=== PATIENT | female | born 1985 | race Caucasian/White ===

== ENCOUNTER 2024-11-14 00:22 | Day surgery (SDC) | payer BC, SELFPAY ==
[2024-11-04 14:51] VITALS: BMI 20.9
--- NOTE | 2024-11-04 15:00 | PC.NURSE ---
Report to the Outpatient Waiting Room, entrance under the green pavilion located off [facility], at time _0615_ on date _[id number]_. Planned Procedure Time: _0815_.? Time changes happen often and if your time is changed the preop area will call you the afternoon before. - You and your visitor will be asked to self-screen and do not enter if you have any COVID symptoms. Please call surgeon if you need to reschedule. - A mask is optional within the hospital at this time. Patients may have clear liquids (water, carbonated beverages, clear teas, apple juice) until 3 hours prior to surgery with a maximum of 20 ounces. - No food from midnight until time of surgery and no smoking, or chewing tobacco (or any form of nicotine). No chewing gum, candy or mints. Take only the following medications with a SIP of water on the morning of surgery: __BC pill, Lamotrigine and Escitalopram.____ DO NOT STOP ANY OF YOUR OTHER PRESCRIPTION MEDICATIONS PRIOR TO SURGERY EXCEPT THE FOLLOWING Hold all vitamins and supplements for 3 days per anesthesiologist. Medications to discontinue per physician Date to take last dose Please no make-up, nail italian, hairspray, perfume, deodorant, or body powder the day of surgery.? No jewelry (including any body piercings) or valuables the day of surgery, leave them at home.? Please take a shower or bath the night before, or the morning of, surgery with an antibacterial soap.? Wear comfortable, loose fitting clothing.? - Jewelry must be removed prior to entering the operating room.? Rings and piercings that are not removed may be cut off. - The hospital will not accept responsibility for valuables.? - Please leave all valuables, including medications, at home the day of surgery. If you are going home after surgery, a licensed batch mixing truck driver must drive you home.? - NO public transportation without another adult if you receive anesthesia. - We recommend that an adult stay with you for 24 hours following discharge. - We also recommend that you do not drive, make important decision, drink alcoholic beverages, or take any drugs that were not prescribed by your health care provider for at least 24 hours after your discharge time. Follow any additional instructions given to you from your surgeon. Telephone instructions given to __Citlaly__and asked if any additional questions and then verbalized understanding. Patient advised to call surgeon office or pre surgery nurse liaison [phone] if any additional questions.
--- NOTE | 2024-11-13 10:27 | WPDANESEPPF ---
Anes - Initial Pre Proc Eval Procedure: Operation Date: 11/14/24 08:15 Proposed Procedures p Laparoscopic Bilateral Salpingectomy - Tara Ruiz MD Date/Time: 11/13/24 10:27 Surgeon: Tara Ruiz MD Pre Op Diagnosis: Request sterilization Patient Data Age: 39 Gender: F Height: 1.7 m Weight: 60.5 kg Allergies Allergy/AdvReac Type Severity Reaction Status Date / Time No Known Allergies Allergy Verified 11/14/24 07:12 Home Medications ?Medication ?Instructions ?Recorded ?Confirmed ?Type atomoxetine 60 mg capsule 60 mg PO DAILY 11/04/24 11/04/24 History cholestyramine (with sugar) 4 gram 1 ea PO DAILY 11/04/24 11/04/24 History oral powder drospirenone 3 mg-ethinyl 1 tablet PO DAILY 11/04/24 11/14/24 History estradiol 0.02 mg tablet (Vestura ()) escitalopram oxalate 20 mg tablet 20 mg PO DAILY 11/04/24 11/14/24 History hydroxyzine HCl 10 mg tablet 10 mg PO Q8H PRN itching 11/04/24 11/04/24 History lamotrigine 25 mg tablet 25 mg PO DAILY 11/04/24 11/14/24 History pregabalin 50 mg capsule 50 mg PO QPM 11/04/24 11/14/24 History quetiapine 150 mg tablet 150 mg PO HS 11/04/24 11/14/24 History sumatriptan succinate 25 mg tablet 25 mg PO Q2H PRN migraine headache 11/04/24 11/04/24 History topiramate 25 mg tablet 25 mg PO HS 11/04/24 11/14/24 History Patient hx anesthesia problems: none Family hx anesthesia problems: none Results Review: All pre-operative results and documents have been reviewed as part of the pre-operative evaluation. [facility] Past Medical History Medical History (Updated 11/14/24 @ 07:23 by Tara Ruiz MD) History of Elective - Medical 2020 History of eating disorder Anorexia and bulimia PTSD (post-traumatic stress disorder) ADHD Depression Social History Social History Years smoked: 3 Tobacco type: cigarettes Smoking end date: 11/04/14 Alcohol intake: current Drinks per week: 4 Substance use type: marijuana Other substance usage details: Daily Living arrangements: with family Spiritual care concerns: No Anes - Eval Final PreProcedure Day of Procedure 11/13/24 10:27 Patient weight: normal Heart: regular rate and rhythm Lungs: clear to auscultation and normal air movement Airway: Mallampati scale class II Neurological: alert and oriented Last oral intake: >/= 8 hours ASA classification: III Emergent: no Anesthetic plan: proceed Anesthesia type and monitoring: general GIVS and standard monitoring Results Review: All pre-operative results and documents have been reviewed as part of the pre-operative evaluation. Informed Consent: The patient's anesthetic plan and its attendant risks and benefits were discussed with the patient/family/POA. Questions were solicited and answers provided to the satisfaction of the patient/family/POA.
--- OUTSIDE RECORDS SUMMARY | 2024-11-14 00:26 | XMS_ITS | Clinical Summary ---
Author Organization [facility] Building [address] [place] [phone] Care Team Providers Care Business Insurance Agent Name Role Phone Tara Cowan Primary Care Provider + Allergies Active Allergy Reactions Criticality Noted Date Comments Other Other (See comments) Low 06/09/2011 Medications escitalopram (LEXAPRO) 20 mg tablet 023 Active hydrOXYzine (ATARAX) 10 mg tablet Take 1 tablet (10 mg total) by mouth every 8 (eight) hours as needed for itching Active lamoTRIgine (LaMICtal) 25 mg disintegrating tablet Take 1 tablet (25 mg total) by mouth daily Active Vestura, 28, 3-0.02 mg per tablet 025 Active norelgestromin-et hin.estradioL (Xulane) 150-35 mcg/24 hr Transdermal 024 Active QUEtiapine 150 mg tablet Take 150 mg by mouth nightly 90 tablet 1 025 Active Lyrica 50 mg capsuleIndication s:Restless legs syndrome (RLS) Take 1 capsule (50 mg total) by mouth daily 90 capsule 1 025 Active SUMAtriptan (IMITREX) 25 mg tablet Take 1 tablet (25 mg total) by mouth once as needed for migraine May repeat dose once in 2 hours if no relief. Do not exceed 2 doses in 24 hours. 27 tablet 3 025 Active topiramate (TOPAMAX) 25 mg tablet Take 1 tablet (25 mg total) by mouth nightly 90 tablet 3 025 Active cholestyramine (QUESTRAN) 4 gram powder Take 1 packet (4 g total) by mouth daily 328 g 1 Active QUEtiapine 150 mg tablet TAKE 1 TABLET BY MOUTH EVERY DAY AT BEDTIME FOR DEPRESSION 2024 Discontinued(R eorder) SUMAtriptan (IMITREX) 25 mg tablet TAKE 1 TABLET BY MOUTH DAILY NEEDED FOR MIGRAINES. MAY REPEAT DOSE FOR 1 AFTER 2 HOURS NEEDED 024 2024 Discontinued(R eorder) topiramate (TOPAMAX) 25 mg tablet Take 1 tablet (25 mg total) by mouth nightly 024 2024 Discontinued(R eorder) cholestyramine (QUESTRAN) 4 gram packet daily 2024 Discontinued Lyrica 50 mg capsule daily 2024 Discontinued(R eorder) Active Problems Problem Noted Date Diagnosed Date Night terror 10/17/2024 Assessment & Plan (11/08/2024 2:09 PM CDT): The patient presents with night terrors and nightmares where she dreams of choking and smothering. I have recommended proceeding with a nocturnal polysomnogram with a split night protocol if necessary and no MSLT. Her significant other does note apneic episodes and gasping periods at night. She will follow up here in 4 months. Assessment & Plan (10/17/2024 11:18 PM CDT): Night Terrors Recurrent episodes, some severe, managed with quetiapine (Seroquel). -Continue quetiapine as prescribed. -Refer to sleep medicine for potential sleep study to evaluate for sleep apnea. Orders: Ambulatory referral to Sleep Medicine; Future Restless legs syndrome (RLS) 10/17/2024 Assessment & Plan (11/08/2024 2:10 PM CDT): She continues on Lyrica 50 mg p.o. at 5:00 p.m. and this is controlling the RLS symptoms at night Assessment & Plan (10/17/2024 11:18 PM CDT): Chronic, well controlled Managed with Lyrica. -Continue Lyrica as prescribed. Orders: Ambulatory referral to Sleep Medicine; Future Lyrica 50 mg capsule; Take 1 capsule (50 mg total) by mouth daily Irritable bowel syndrome with diarrhea Assessment & Plan (10/17/2024 11:18 PM CDT): Irritable Bowel Syndrome Managed with cholestyramine powder. -Continue cholestyramine powder as prescribed. Attention deficit disorder (ADD) in adult 2024 Assessment & Plan (10/17/2024 11:18 PM CDT): Chronic, well controlled Continue Medical management per psychiatrist Migraine without aura and wi thout status migrainosus, not intractable 10/17/2024 Assessment & Plan (10/17/2024 11:18 PM CDT): Chronic, well controlled Occur infrequently, primarily around menstrual cycles. Continue topiramate daily and sumatriptan as needed. Mixed anxiety depressive disorder 12/26/2013 Assessment & Plan (10/17/2024 11:18 PM CDT): Chronic Well controlled Follows with psychiatrist Continue current regimen of escitalopram and lamotrigine. Anorexia nervosa in remission 06/09/2011 Assessment & Plan (10/17/2024 11:18 PM CDT): Doing well Controlling anxiety/depression Encounters Date Type Department Care Team Description 11/08/2024 1:30 PM CDT Office Visit [facility] [address] [phone] Yevgeniy Garcia MD Night terror; Restless legs syndrome (RLS); Snoring 10/28/2024 Telephone [facility] Pulmonary January [address] [facility] [address] [place] [address] Yevgeniy Garcia MD Appointment Reminder Call (Call made to the patient, Sleep study) 10/17/2024 1:30 PM CDT Office Visit [facility] [address] [phone] Tara Cowan PA Mixed anxiety depressive disorder (Primary Dx); Night terror; Restless legs syndrome (RLS); Irritable bowel syndrome with diarrhea; Attention deficit disorder (ADD) in adult; Snoring; Migraine without aura and without status migrainosus, not intractable; Anorexia nervosa in remission (HCC) from Last 3 Months Immunizations Immunization Administration Dates Next Due Hep A, Adult 08/15/2017,01/12/2017,08/10/2016 Influenza, Quadrivalent, Arleen l Culture-based MDCK, Preservative Free, Antibiotic Free, Intramuscular 08/17/2021 Influenza, Trivalent, Cell Culture-based MDCK, Preservative Free, Antibiotic Free, Intramuscular 08/15/2017 Influenza, Unspecified 10/17/2024(Deferr ed: Patient Refused),05/10/2024(Deferred: Patient decision),05/10/2023(Deferred: Patient Refused) Tdap 02/15/2024 Medical History Medical History Date Comments Depression 2002 Bulimia nervosa 2010 Anxiety 7 years old Migraines 2020 Chicken pox Family History Medical History Relation Name Comments Diabetes Father Cody Hearing loss Father Cody Alcohol abuse Maternal Grandfather Demarco Stroke Maternal Grandmother Kathya Depression Mother Virginia Hyperlipidemia Mother Virginia Mental illness Mother Virginia Miscarriages / Stillbirths Mother Virginia Obesity Mother Virginia Colon cancer Other 2 Great uncle mom 's side Alcohol abuse Paternal Grandfather Breast cancer Neg Hx Relation Name Status Comments Father Cody Alive Maternal Grandfather Demarco Maternal Grandmother Kathya Alive Mother Virginia Alive Other 1 Alive Other 2 Paternal Grandfather Paternal Grandmother Social History Tobacco Use Types Packs/Day Years Used Date Smoking Tobacco: Former Cigarettes 0.3 5.2 0 08/10/2009 - 08/10/2014 Smokeless Tobacco: Never Tobacco Cessation:Counseling Given: Not Answered AUDIT-C Answer Date Recorded Q1: How often do you have a drink containing alc ohol? 2-4 times a month 10/17/2024 Q2: How many drinks containi ng alcohol do you have on a typical day when you are drinking? 3 or 4 10/17/2024 Q3: How often do you have si x or more drinks on one occasion? 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 Gender Identity Not on file Sexual Orientation Not on file Obstetrics History Last Filed Vital Signs Vital Sign Reading Time Taken Comments Blood Pressure 114/64 11/08/2024 1:33 PM CDT Pulse 94 11/08/2024 1:33 PM CDT Temperature 36.3 C (97.4 F) 11/08/2024 1:33 PM CDT Respiratory Rate 18 11/08/2024 1:33 PM CDT Oxygen Saturation 99% 11/08/2024 1:33 PM CDT Inhaled Oxygen Concentration - - Weight 62.6 kg (138 lb) 11/08/2024 1:33 PM CDT Height 170.2 cm (5' 7 ) 11/08/2024 1:33 PM CDT Body Mass Index 21.61 11/08/2024 1:33 PM CDT Plan of Treatment Health Maintenance Due Date Last Done Comments Breast Cancer Screening-Mammogram 1984 Hepatitis C Screening 1984 Hepatitis B Screening 2002 Regular Well Visit/Exam 18-64 2002 Covid-19 Vaccine (2023- 5 season) 2024 08/17/2021, 10/25/2020, 10/04/2020 Influenza Vaccine (Season Ended) 2025 08/17/2021, 08/15/2017 Depression Screening 10/17/2025 10/17/2024, 10/17/2024 Cervical Cancer Screening 02/16/2029 02/17/2024 DTaP/Tdap/Td Vaccine (2 - Td or Tdap) 02/14/2034 02/15/2024 HPV Vaccines Aged Out No longer eligi ble based on patient's age to complete this topic Pneumococcal vaccine <65 Aged Out No longer eligible based on patient's age to complete this topic Procedures Procedure Name Priority Date/Time Associated Diagnosis Comments LIPID PANEL Routine 11/10/2024 2:38 PM CDT PAP SMEAR WITH HPV Routine 02/17/2024 2:38 PM CDT from Last 3 Months or Most Recently Relevant to Health Maintenance Results * LIPID PANEL (11/10/2024 2:38 PM CDT) SCRIBED Cholesterol, Total 229 SCRIBED Triglycerides 82 SCRIBED HDL 87 SCRIBED LDL 124 SCRIBED LDL/HDL Ratio 2.6 Historical Provider HEALTH MAINTENANCE Edited Result - Final * PAP SMEAR WITH HPV (02/17/2024 2:38 PM CDT) Scribed Pap Smear w/HPV Normal Historical Provider MD HEALTH MAINTENANCE Final Result from Last 3 Months or Most Recently Relevant to Health Maintenance Insurance DermApproved OOS BLUE ACCESS OOS BLUE ACCESS OOS [address] [place] [address] Care Teams Business Insurance Agent Relationship Specialty Start Date End Date Tara Cowan PA [address] [facility] [address] [place], [place] [id number] PCP - General Family Medicine 10/11/24
--- OUTSIDE RECORDS SUMMARY | 2024-11-14 00:26 | XMS_ITS | Referral Summary ---
Author Organization [facility] [address] [place] [phone] Care Team Providers Care Nuclear Power Reactor Operator Name Role Phone Tara Cowan Primary Care Provider + Encounters Date Type Department Care Team Description 11/08/2024 1:30 PM CDT Office Visit [facility] [address] [phone] Yevgeniy Garcia MD Night terror; Restless legs syndrome (RLS); Snoring 10/28/2024 Telephone [facility] [address] [phone] Yevgeniy Garcia MD Appointment Reminder Call (Call made to the patient, Sleep study) 10/17/2024 1:30 PM CDT Office Visit [facility] [address] [phone] Tara Cowan PA Mixed anxiety depressive disorder (Primary Dx); Night terror; Restless legs syndrome (RLS); Irritable bowel syndrome with diarrhea; Attention deficit disorder (ADD) in adult; Snoring; Migraine without aura and without status migrainosus, not intractable; Anorexia nervosa in remission (HCC) from Last 3 Months Allergies Active Allergy Reactions Criticality Noted Date [...] total) by mouth daily 328 g 1 025 Active QUEtiapine 150 mg tablet TAKE 1 TABLET BY MOUTH EVERY DAY AT BEDTIME FOR DEPRESSION 024 2024 Discontinued(R eorder) SUMAtriptan (IMITREX) 25 mg [...] 11:18 PM CDT): Doing well Controlling anxiety/depression Immunizations Immunization Administration Dates Next Due Hep A, Adult 08/15/2017,01/12/2017,08/10/2016 Influenza, Quadrivalent, Arleen l Culture-based MDCK, Preservative Free, Antibiotic Free, Intramuscular 08/17/2021 Influenza, Trivalent, Cell Culture-based MDCK, Preservative Free, Antibiotic Free, Intramuscular 08/15/2017 Influenza, Unspecified 10/17/2024(Deferr ed: Patient Refused),05/10/2024(Deferred: Patient decision),05/10/2023(Deferred: Patient Refused) Tdap 02/15/2024 Social History Tobacco Use Types Packs/Day Years [...] on file 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 Gender Identity Not on file Sexual Orientation Not on file Last Filed Vital Signs Vital Sign Reading [...] 11/08/2024 1:33 PM CDT Plan of Treatment Not on file Procedures Procedure Name Priority Date/Time Associated Diagnosis [...] Scribed Pap Smear w/HPV Normal Historical Provider HEALTH MAINTENANCE Final Result from Last 3 Months or Most Recently Relevant to Health Maintenance Insurance BLUE ACCESS OOS BLUE ACCESS OOS BLUE ACCESS OOS [address] [place] [address] Care Teams Nuclear Power Reactor Operator Relationship Specialty Start Date End Date Tara Cowan PA [address] [facility] [address] [place] [address] PCP - General Family Medicine 10/11/24
--- OUTSIDE RECORDS SUMMARY | 2024-11-14 00:26 | XMS_ITS | Clinical Summary ---
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 Gender Identity Not on file Sexual Orientation Not on file Plan of Treatment Health Maintenance Due Date Last Done Comments Hepatitis C Virus (HCV) Screening 1984 TdaP Immunization 1984 Hepatitis B Immunization (1 of 3 - 19+ 3-dose series) 2003 Pap Smear 2005 Cervical Cancer Screening (CCS) 2014 HPV/Cotest 2014 Influenza Immunization (#1) 2024 SARS-COV-2 Immunization ( season) 2024 10/25/2020, 10/04/2020 Discussion re Starting/Frequency of Mammograms 2024 Respiratory Syncytial Virus (RSV) Immunization (Adult) (1 - 1-dose 75+ series) 2059 Meningococcal Immunization (ACWY) Aged Out No longer eligible b ased on patient's age to complete this topic Pneumococcal Immunization Combined Aged Out No longer eligible b ased on patient's age to complete this topic Rotavirus Immunization Aged Out No lo nger eligible based on patient's age to complete this topic
[2024-11-14 06:25] VITALS: BP 116/70; PULSE 58; RESP 16; TEMP 36.6; O2SAT 100; BMI 21.2
[2024-11-14] MEDS: LACTATED RINGERS 1,000 ML 30 ML IV CONT (07:00)
[2024-11-14 07:16] LABS: BEDSIDEPREGUCG Negative (Negative)
--- NOTE | 2024-11-14 07:19 | P.HP_ITS ---
History of Present Illness History of Present Illness Consent: Risks, benefits, and alternatives have been discussed and questions answered. Patient agrees to proceed with procedure. Chief complaint: Request sterilization Narrative: Citlaly Lau is a 39 year old female who does not wish to have any children. Options were discussed patient and she has elected to proceed with a permanent sterilization via laparoscopic bilateral salpingectomy. Risks infection, bleeding, injury to internal organs, tubal failure with increased risk of ectopic , and general anesthesia were reviewed. Patient voices understanding and agrees to proceed. Review of Systems Review of Systems: not repeated day of surgery; patient states no changes in status [facility] Past Medical History Medical History (Updated 11/14/24 @ 07:23 by Tara Ruiz MD) History of Elective - Medical 2020 History of eating disorder Anorexia and bulimia PTSD (post-traumatic stress disorder) ADHD Depression Social History Social History Years smoked: 3 Tobacco type: cigarettes Smoking end date: 11/04/14 Alcohol intake: current Drinks per week: 4 Substance use type: marijuana Other substance usage details: Daily Living arrangements: with family Spiritual care concerns: No Meds Home Medications and Allergies Home Medications ?Medication ?Instructions ?Recorded ?Confirmed ?Type atomoxetine 60 mg capsule 60 mg PO DAILY 11/04/24 11/04/24 History cholestyramine (with sugar) 4 gram 1 ea PO DAILY 11/04/24 11/04/24 History oral powder drospirenone 3 mg-ethinyl 1 tablet PO DAILY 11/04/24 11/14/24 History estradiol 0.02 mg tablet (Vestura (28)) escitalopram oxalate 20 mg tablet 20 mg PO DAILY 11/04/24 11/14/24 History hydroxyzine HCl 10 mg tablet 10 mg PO Q8H PRN itching 11/04/24 11/04/24 History lamotrigine 25 mg tablet 25 mg PO DAILY 11/04/24 11/14/24 History pregabalin 50 mg capsule 50 mg PO QPM 11/04/24 11/14/24 History quetiapine 150 mg tablet 150 mg PO HS 11/04/24 11/14/24 History sumatriptan succinate 25 mg tablet 25 mg PO Q2H PRN migraine headache 11/04/24 11/04/24 History topiramate 25 mg tablet 25 mg PO HS 11/04/24 11/14/24 History Allergies Allergy/AdvReac Type Severity Reaction Status Date / Time No Known Allergies Allergy Verified 11/14/24 07:12 Exam Const: General: healthy appearing and alert Orientation/consciousness: patient oriented x3 Resp: Effort & Inspection: normal respiratory effort GI: GI Palp: Yes Soft to palpation, No Tenderness to palpation present (GI) and No Palpable mass present : External Female Exam: normal external appearance Speculum Exam - Vagina: normal appearance of the vagina and normal vaginal discharge Speculum Exam - Cervix: normal appearance of the cervix Bimanual exam- vagina & uterus: uterine size normal and consistency normal Bimanual Exam- Adnexa, other: normal adnexae and No adnexal tenderness Neuro: General: patient oriented x3 Assessment and Plan Assessment and plan (1) Encounter for sterilization: Code(s): Z30.2 - Encounter for sterilization Status: Acute Assessment and Plan: Plan to proceed with laparoscopic bilateral salpingectomy
--- NOTE | 2024-11-14 07:19 | WPDHPUPDATE1 ---
History and Physical Update Update Date/Time: 11/14/24 07:19 History and Physical has been reviewed, including an updated exam of the patient. There are NO changes in the patient's condition. Risks, benefits, and alternatives have been discussed and questions answered. Patient agrees to proceed with procedure.
[2024-11-14] MEDS: KETOROLAC 15 MG/ML VIAL (*BKC) IV PUSH (07:26)
[2024-11-14] MEDS: ACETAMINOPHEN 500 MG TABLET 1000 MG PO (07:26)
--- NOTE | 2024-11-14 08:38 | P.OP_ITS ---
Procedure Note - Detailed Date of Procedure 11/14/24 Pre-op Diagnosis Request sterilization Post-op Diagnosis Same Procedure Performed Laparoscopic bilateral salpingectomy Surgeon Tara Ruiz MD Anesthesia General Findings Normal-appearing tubes, ovaries, uterus, and pelvis. Description of Procedure The patient was taken to the operating room and placed under anesthesia in the dorsal lithotomy position. She was prepped and draped in the usual sterile fashion. Bladder was drained with a red rubber catheter. The bivalve speculum was placed in the vagina and the cervix grasped on the anterior lip with a tenaculum. The acorn manipulator was placed and the speculum removed. Attention was turned to the abdomen where a vertical skin incision was made at the base of the umbilicus. The abdomen was tented and the Veress needle placed. Opening patient pressure was 5mmHg. Pneumoperitoneum was obtained to a patient pressure of 15mmHg. The 5mm trocar is placed and intra-abdominal placement was confirmed with the laparoscope. The patient was placed in Trendelenburg and two 5mm incisions are made above the symphysis pubis 1 to the left and 1 to the right of midline. 5mm trocars are placed under direct visualization. The blunt probe was used to bring the tubes into view. The left tube was grasped with an atraumatic grasper at the fimbriated end. The LigaSure is used to cauterize and cut the mesosalpinx until the cornu was reached. The tube was then crossclamped, cauterized, and cut with the LigaSure. The identical procedure was performed on the right side. Good hemostasis is noted at both surgical sites. All instruments are removed. Pneumoperitoneum was reduced. Skin incisions were closed using 4-0 nylon in interrupted fashion. Sterile bandages were applied. Vaginal instruments are removed. Patient was awakened from a nesthesia and taken to recovery in stable condition. Sponge, needle, and instrument counts are correct per the OR staff. Estimated Blood Loss 5 Drains No Packing No Pathology Yes (Bilateral tubes) Complications No immediate complications Condition Stable Disposition PACU
[2024-11-14 08:44] VITALS: BP 84/54; PULSE 62; RESP 17; TEMP 36.5; O2SAT 100
[2024-11-14 08:59] VITALS: BP 108/68; PULSE 76; RESP 16; O2SAT 100
[2024-11-14 09:12] VITALS: BP 126/63; PULSE 60; RESP 21; O2SAT 100
[2024-11-14 09:15] VITALS: BP 125/89; PULSE 66; RESP 18
[2024-11-14 09:45] VITALS: BP 123/80; PULSE 56; RESP 18
== END 2024-11-14 09:58 | disposition home or self-care (01) ==
PROVIDERS: PCP Physician Assistant; Visit Provider Obstetrics & Gynecology Gynecology
PROC: (CPT 49320; principal; 2024-11-14 08:15)
DX: Z30.2 Encounter for sterilization (principal); D28.2 Benign neoplasm of uterine tubes and ligaments; Z87.891 Personal history of nicotine dependence; F12.90 Cannabis use, unspecified, uncomplicated
CPT/HCPCS: 58661; 88302; A9270; J1100; J1885; J2003; J2250; J2405; J2704; J3010; J7030; J7120; Q9968

== ENCOUNTER 2025-02-21 15:16 | Outpatient (CLI) | payer BC, SELFPAY ==
--- NOTE | ~2025-02-21 | MM_ITS ---
EXAMINATION: MM screening sly BI w kunal HISTORY: Screening TECHNIQUE: Craniocaudal and mediolateral oblique 3-D tomosynthesis images were obtained and synthetic 2-D images were generated. CAD analysis was submitted and interpreted. COMPARISON: No prior mammogram is available for comparison at this institution. BREAST PARENCHYMAL COMPOSITION: Dense: The breasts are heterogeneously dense, which may obscure small masses FINDINGS: There is no evidence of suspicious mass, calcification, or architectural distortion to sugg est malignancy in either breast. There has been no suspicious interval change. IMPRESSION: 1. No mammographic evidence of malignancy. 2. Recommend routine screening mammography in one year. BI-RADS Category 1: Negative Reviewed, dictated and finalized at location B.
== END 2025-02-21 15:17 | disposition home or self-care (01) ==
LOC: MICIMG 15:17
PROVIDERS: PCP Obstetrics & Gynecology Gynecology; Visit Provider Obstetrics & Gynecology Gynecology
DX: Z12.31 Encounter for screening mammogram for malignant neoplasm of breast (principal)
CPT/HCPCS: 77063; 77067